=== PATIENT | male | born 1980 | race African-American/Black ===

== ENCOUNTER 2020-12-29 23:53 | Emergency (ER) | payer SELFPAY ==
[~2020-12-29] VITALS: Ht 180.3 cm; Wt 93.4 kg
[2020-12-30] MEDS ORDERED: IBUPROFEN 600MG TABLET PO STA (01:33)
[2020-12-30 01:45] VITALS: BP 133/97
[2020-12-30] MEDS ORDERED: NAPR-681 PO (01:54)
[2020-12-30] MEDS ORDERED: AMLO5TAB88 PO (01:54)
== END 2020-12-30 02:45 | disposition home or self-care (01) ==
LOC: ER 23:53
DX: I10 Essential (primary) hypertension (principal); R51.9 Headache, unspecified; Z88.8 Allergy status to other drugs, medicaments and biological substances
CPT/HCPCS: 99283; Z7610